=== PATIENT | female | born 1985 | race Two or more races ===

== ENCOUNTER 2019-10-20 21:47 | Inpatient (IN) | payer OTHER ==
[~2019-10-20] VITALS: Ht 167.6 cm; Wt 79.1 kg
[2019-10-20] MEDS ORDERED: OXYTOCIN 30U/ 0.9% NaCL 500ML 500 ML IV ONE (21:55)
[2019-10-20] MEDS ORDERED: FENTANYL/BUPIV./NS/PF 250 ML EPIDCONT SCH ×2 (21:59→22:48)
[2019-10-20] MEDS ORDERED: ONDANSETRON 2MG/ML, 2ML IVPush PRN ×2 (22:00→23:00)
[2019-10-20] MEDS: LACTATED RINGERS 1,000 ML IV SCH (22:00)
[2019-10-20] MEDS ORDERED: LACTATED RINGERS 1,000 ML IVBOLUS PRN ×2 (22:00→23:00)
[2019-10-20] MEDS ORDERED: TERBUTALINE 1 MG/ML, 1ML SQ PRN (22:00)
[2019-10-20] MEDS ORDERED: TERBUTALINE 1 MG/ML, 1ML IVPush PRN (22:00)
[2019-10-20] MEDS ORDERED: FENTANYL PF 100 MCG/2ML IVPush PRN (22:00)
[2019-10-20] MEDS ORDERED: PREN1TAB60 PO (22:02)
[2019-10-20] MEDS ORDERED: FENTANYL PF 100 MCG/2ML ONE (22:02)
[2019-10-20] MEDS ORDERED: FENTANYL/BUPIV./NS/PF 250 ML EPIDCONT ONE (22:05)
[2019-10-20] MEDS ORDERED: NEWBORN KIT ONE (22:06)
[2019-10-20] MEDS ORDERED: OXYTOCIN 30U/ 0.9% NaCL 500ML 500 ML ONE (22:06)
[2019-10-20] MEDS ORDERED: BUPIVACAINE 0.25% ONE (22:30)
[2019-10-20] MEDS ORDERED: PLEASE ENTER ALLERGIES MC SCH (22:30)
[2019-10-20 22:48] LABS: BASOPHILS % (AUTO) 0 % (0-1); EOSINOPHILS # (AUTO) 0.01 x10^3/uL (0-0.4); EOSINOPHILS % (AUTO) 0 % (1-7); LYMPHOCYTES # (AUTO) 0.92 x10^3/uL (1-3.4); LYMPHOCYTES % (AUTO) 7 % (22-44); MD NO; MEAN CORPUSCULAR HEMOGLOBIN 30.5 pg (27.0-34.8); MEAN CORPUSCULAR HGB CONC 33.2 g/dL (32.4-35.8); MEAN CORPUSCULAR VOLUME 91.9 fL (80-100); MEAN PLATELET VOLUME 9.2 fL (7.4-10.4); MONOCYTES # (AUTO) 0.51 x10^3/uL (0.2-0.8); MONOCYTES % (AUTO) 4 % (2-9); NEUTROPHILS # (AUTO) 12.71 x10^3/uL (1.8-6.8); NEUTROPHILS % (AUTO) 90 % (42-75); PLATELET COUNT 157 x10^3/uL (130-400); RED BLOOD COUNT 4.48 x10^6/uL (3.82-5.3); RED CELL DISTRIBUTION WIDTH 13.6 % (9.6-15.2)
[2019-10-20 22:58] VITALS: BP 125/62
[2019-10-20] MEDS ORDERED: EPHEDRINE 50 MG/ML, 1ML IVPush PRN (23:00)
[2019-10-20] MEDS ORDERED: NALOXONE 0.4 MG/ML, 1ML IVPush PRN (23:00)
[2019-10-20] MEDS ORDERED: DIPHENHYDRAMINE 50 MG/ML, 1ML IVPush PRN (23:00)
[2019-10-21] MEDS: LACTATED RINGERS 1,000 ML IV SCH ×5 (01:13→14:48)
[2019-10-21] MEDS ORDERED: SIMETHICONE 80 MG CHEW TAB PO PRN (03:30)
[2019-10-21] MEDS ORDERED: ONDANSETRON 2MG/ML, 2ML IV PRN (03:30)
[2019-10-21] MEDS ORDERED: MISOPROSTOL 200 MCG TABLET PR PRN (03:30)
[2019-10-21] MEDS ORDERED: IBUPROFEN 600 MG TABLET ONE (04:16)
[2019-10-21] MEDS: IBUPROFEN 600 MG TABLET PO PRN ×3 (04:18→20:38)
[2019-10-21] MEDS ORDERED: OXYTOCIN 30U/ 0.9% NaCL 500ML 500 ML ONE (05:31)
[2019-10-21] MEDS: OXYTOCIN 30U/ 0.9% NaCL 500ML 500 ML IV SCH ×3 (05:33→23:21)
[2019-10-21 07:30] VITALS: BP 97/61
[2019-10-21] MEDS: PRENATAL VIT/IRON/FA 1 EACH TABLET PO SCH (08:06)
[2019-10-21] MEDS: OXYcodone/APAP 5/325MG TABLET PO PRN ×2 (08:06→12:51)
[2019-10-21] MEDS: DOCUSATE 100 MG CAPSULE PO PRN ×2 (08:06→20:38)
[2019-10-21 12:40] VITALS: BP 104/71
[2019-10-21 16:45] VITALS: BP 108/71
[2019-10-21 19:30] VITALS: BP 108/70
[2019-10-22 01:24] VITALS: BP 111/79
[2019-10-22] MEDS: DOCUSATE 100 MG CAPSULE PO PRN (07:43)
[2019-10-22] MEDS: IBUPROFEN 600 MG TABLET PO PRN (07:43)
[2019-10-22 09:12] VITALS: BP 117/80
[2019-10-22] MEDS: OXYTOCIN 30U/ 0.9% NaCL 500ML 500 ML IV SCH (09:21)
[2019-10-22] MEDS ORDERED: MEASLES,MUMPS&RUBELLA VACC/PF 0.5 ML SQ-VACC ONE (10:00)
[2019-10-22] MEDS ORDERED: IBUP200T49 PO (10:02)
[2019-10-22] MEDS: PRENATAL VIT/IRON/FA 1 EACH TABLET PO SCH (10:14)
== END 2019-10-22 12:00 | disposition home or self-care (01) | DRG 807 ==
LOC: LDOP 21:47 → LDIP 21:58 → 2NE 10-21 05:31 → 2NW 10-21 07:04
PROVIDERS: ADMIT Student in an Organized Health Care Education/Training Program; ATTEND Student in an Organized Health Care Education/Training Program
PROC: 3E0R3BZ Introduction of Anesthetic Agent into Spinal Canal, Percutaneous Approach (ICD-10-PCS; principal; 2019-10-21)
PROC: 10E0XZZ Delivery of Products of Conception, External Approach (ICD-10-PCS; 2019-10-21)
PROC: 0HQ9XZZ Repair Perineum Skin, External Approach (ICD-10-PCS; 2019-10-21)
DX: O62.0 Primary inadequate contractions (principal); Z37.0 Single live birth; O70.0 First degree perineal laceration during delivery; Z88.0 Allergy status to penicillin; Z3A.38 38 weeks gestation of pregnancy
CPT/HCPCS: 36415; 85025; 86592; 86850; 86900; G0378; J3010; J2590; J7120